=== PATIENT | female | born 2000 | race Asian ===

== ENCOUNTER 2025-08-05 06:12 | Outpatient (REF) | payer OTHER, SELFPAY ==
--- NOTE | ~2025-08-05 | US_ITS ---
EXAMINATION: US PELVIS TRANSABDOMINAL AND TRANSVAGINAL HISTORY: IUD STRING SEEMS LONG ON EXAM, DIFFICULT INSERTION COMPARISON: There are no prior studies available for comparison. TECHNIQUE: Transabdominal and endovaginal real-time 2D feldman-scale ultrasound was performed. FINDINGS: Uterus: The uterus is normal in size, measuring 8.3 x 3.3 x 4.3 cm. Myometrium has a normal echotexture. No fibroids are identified. Endometrium: The endometrial stripe measures 2 mm in thickness. An IUD is noted in appropriate position in the endometrial canal. Right ovary: The right ovary measures 2.5 x 1.9 x 2.3 cm. The right ovary is normal in size and echotexture. Left ovary: The left ovary measures 3.2 x 2.2 x 1.8 cm. The left ovary is normal in size and echotexture. There is a 2.8 x 1.7 x 2.4 cm cyst. Pelvic fluid: none. US/US pelvic and transvaginal IMPRESSION: 1. IUD in appropriate position in the endometrial canal. 2. 2.8 x 1.7 x 2.4 cm left ovarian cyst. Electronically signed by: Beto Tiwari MD 08/05/2025 01:52 PM EDT
== END 2025-08-05 06:13 | disposition home or self-care (01) ==
LOC: HO.UMASIMG 06:12
PROVIDERS: Visit Provider Nurse Practitioner Women's Health
DX: Z30.431 Encounter for routine checking of intrauterine contraceptive device (principal)
CPT/HCPCS: 76830; 76856

== ENCOUNTER → 2025-08-05 13:11 | Outpatient (BNV) | payer OTHER, SELFPAY | PROVIDERS: Visit Provider Radiology Diagnostic Radiology | DX: N83.202 Unspecified ovarian cyst, left side (principal); Z97.5 Presence of (intrauterine) contraceptive device | CPT/HCPCS: 76830; 76856 ==